=== PATIENT | female | born 1960 ===

== ENCOUNTER 2019-02-10 09:53 | Emergency (ER) | payer MEDICARE, MEDICAID ==
[~2019-02-10] VITALS: Ht 172.7 cm; Wt 44.0 kg
[2019-02-10 11:37] VITALS: BP 107/83
== END 2019-02-10 12:05 | disposition home or self-care (01) ==
LOC: ER 09:54
DX: B35.1 Tinea unguium (principal); L30.9 Dermatitis, unspecified; L65.9 Nonscarring hair loss, unspecified; F17.200 Nicotine dependence, unspecified, uncomplicated; F10.99 Alcohol use, unspecified with unspecified alcohol-induced disorder; Y90.9 Presence of alcohol in blood, level not specified
CPT/HCPCS: 99283

== ENCOUNTER 2019-05-13 02:15 | Emergency (ER) | payer MEDICARE, MEDICAID ==
[~2019-05-13] VITALS: Ht 172.7 cm; Wt 56.0 kg
[2019-05-13 02:19] VITALS: BP 160/107
== END 2019-05-13 02:47 | disposition home or self-care (01) ==
LOC: ER 02:15
DX: F41.9 Anxiety disorder, unspecified (principal); F17.200 Nicotine dependence, unspecified, uncomplicated
CPT/HCPCS: 99281